=== PATIENT | female | born 1975 ===

== ENCOUNTER → 2023-09-11 10:37 | Outpatient (BNVA) | payer OTHER, SELFPAY | PROVIDERS: PCP Family Medicine; Visit Provider Family Medicine | DX: Z51.81 Encounter for therapeutic drug level monitoring (principal); R53.81 Other malaise; R53.83 Other fatigue; Z13.1 Encounter for screening for diabetes mellitus; Z13.220 Encounter for screening for lipoid disorders | CPT/HCPCS: 80053; 80061; 83036; 84439; 84443; 85025 ==

== ENCOUNTER 2023-09-25 10:36 | Outpatient (CLI) | payer OTHER, SELFPAY ==
--- NOTE | 2023-09-25 10:38 | MM_ITS ---
WS: [id number] Bilateral screening 3D tomosynthesis digital mammogram, 09/25/2023 Clinical Data: Screening mammogram Comparison: None. Findings: The breast parenchymal pattern shows heterogeneous density. No spiculated masses or clustered calcifi cations are seen. There are no secondary signs of carcinoma. Impression: 1. Negative bilateral mammogram with no prior exam for review. 2. Recommend annual screening mammograms. MM/[place] [id number] BIRADS: 1-Negative FOLLOW UP: 1 Year Follow-up The [employer] aircraft shipping checker was used.
== END 2023-09-25 10:37 | disposition home or self-care (01) ==
LOC: RAD 10:36
PROVIDERS: PCP Family Medicine; Visit Provider Family Medicine
DX: Z12.31 Encounter for screening mammogram for malignant neoplasm of breast (principal)
CPT/HCPCS: 77063; 77067

== ENCOUNTER → 2023-10-09 15:15 | Outpatient (BNVA) | payer OTHER, SELFPAY | PROVIDERS: PCP Family Medicine; Visit Provider Family Medicine | DX: Z01.419 Encounter for gynecological examination (general) (routine) without abnormal findings (principal); Z78.9 Other specified health status | CPT/HCPCS: 87491; 87591; 87624 ==

== ENCOUNTER 2023-10-24 07:17 | Day surgery (SDC) | payer OTHER, SELFPAY ==
[2023-10-24 07:25] VITALS: BP 143/101; PULSE 129; RESP 18; TEMP 36.9; O2SAT 98; BMI 37.0
[2023-10-24] MEDS: sodium chloride 0.9% 1,000 ML 30 ML IV (07:35)
--- NOTE | 2023-10-24 07:44 | P.HP_ITS ---
Providers/Chief Complaint Primary Care Provider: Shadi Hilton MD Chief Complaint: Z12.11, R13.10 History of Present Illness Estrellita Palafox is a 48 year old female Review of Systems General: Reports: 10 or more systems reviewed and unremarkable except in HPI and below Medications/Allergies Home Medications Medication Instructions Recorded Confirmed Last Taken Type No Known Home Medications 09/11/23 10/24/23 Unknown History Allergies Allergy/AdvReac Type Severity Reaction Status Date / Time No Known Allergies Allergy Verified 10/22/23 12:04 PFSH Acute PFSH: Surgical History History of appendectomy History of cholecystectomy Family History Mother Diabetes Heart disease Father Diabetes Heart disease Social History Smoking and tobacco/nicotine status: never used tobacco/nicotine Alcohol intake: current Alcohol intake frequency: few times a week Substance/Drug Use: never Current occupation: Works at [employer] Female Reproductive History: Date of last menstrual period: 10/06/23 Vitals/I&O/Wt Last Vital Signs Temp 98.4 F 10/24/23 07:25 Pulse 129 H 10/24/23 07:25 Resp 18 10/24/23 07:25 BP 143/101 10/24/23 07:25 Pulse Ox 98 10/24/23 07:25 O2 Del Method Room Air 10/24/23 07:25 Weight last 48 hrs Weight 196 lb A&P Assessment and plan (1) Encounter for screening colonoscopy: (2) Dysphagia: Plan EGD with possible balloon dilation Screening colonoscopy Attestations Medical Necessity Statement*: home Coding Level of Care Code Acute Code for Chg Fwd Diagnoses Encounter for screening colonoscopy Z12.11 Dysphagia R13.10
[2023-10-24 07:49] LABS: OR HCG Qualitative Urine Negative (Negative)
--- NOTE | 2023-10-24 07:57 | P.ANESASSM_ITS ---
Pre-Anesthetic Assessment Height/Weight: Height 1.55 m Weight 88.904 kg Temp Pulse Resp BP Pulse Ox O2 Del Method 98.4 F 129 H 18 143/101 98 Room Air 10/24/23 07:25 10/24/23 07:25 10/24/23 07:25 10/24/23 07:25 10/24/23 07:25 10/24/23 07:25 Operation Date: 10/24/23 08:00 Proposed Procedures p [id number] egd w/balloon dialation, [id number] colon G0121 screen colon A risk Z12.11,R13.10(Not Applicable) - Chris Lovell DO s Colonoscopy(Not Applicable) - Chris Lovell DO Familial anesthetic complications: None Was Beta Alex taken within 24 hours: N/A Was Clonidine taken within 24 hours: N/A Last intake: Intake Last Liquid Date 10/23/23 Last Liquid Time 23:30 Last Solid Date 10/22/23 Last Solid Time 16:00 Social No alcohol and No tobacco Exam alert, oriented x 3, clear to auscultation bilaterally and regular rate & rhythm Airway Mallampati: Class III Dentition: partials Metabolic Morbid Obesity Anesthetic Plan ASA status: 2 Anesthesia: MAC Risk of > 500 ml blood loss (7ml/kg in children): No Medications/Allergies Home Medications Medication Instructions Recorded Confirmed Last Taken Type No Known Home Medications 09/11/23 10/24/23 Unknown History Allergies Allergy/AdvReac Type Severity Reaction Status Date / Time No Known Allergies Allergy Verified 10/22/23 12:04 Current Medications Generic Name Dose Route Start Last Admin Trade Name Freq PRN Reason Stop Dose Admin Sodium Chloride 1,000 mls @ 30 mls/hr 10/24/23 07:30 10/24/23 07:35 Sodium Chloride 0.9% IV 10/25/23 07:29 30 mls/hr .Q24H JAYSHREE Administration PFSH Anesthesia Surgical History History of appendectomy History of cholecystectomy Family History Mother Diabetes Heart disease Father Diabetes Heart disease Social History Smoking and tobacco/nicotine status: never used tobacco/nicotine Alcohol intake: current Alcohol intake frequency: few times a week Substance/Drug Use: never Current occupation: Works at [employer] Female Reproductive History Date of last menstrual period: 10/06/23 Data Anesthesia Cardiac Studies: No Data to Display
[2023-10-24 08:48] VITALS: BP 151/103; PULSE 86; RESP 20; TEMP 36.5; O2SAT 98
[2023-10-24 08:53] VITALS: BP 129/97; PULSE 100; RESP 20; O2SAT 92
[2023-10-24 09:03] VITALS: BP 132/79; PULSE 97; RESP 20; O2SAT 94
--- NOTE | 2023-10-24 09:35 | ANE.PACU2 ---
Inpatient post-anesthesia follow up: Airway intact: Yes Vital signs: Temperature 97.7 F Pulse Rate 97 Respiratory Rate 20 Blood Pressure 132/79 Pulse Oximetry 94 Oxygen Delivery Me thod Room Air Oxygen Flow Rate 8 Fraction of Inspir ed Oxygen Hydration adequate: Yes Nausea and vomiting: No Pain level: 1 Mental status: Baseline
== END 2023-10-24 09:35 | disposition home or self-care (01) ==
PROVIDERS: Anesthesiology; PCP Family Medicine; Visit Provider Surgery
PROC: 0DJD8ZZ Inspection of Lower Intestinal Tract, Via Natural or Artificial Opening Endoscopic (ICD-10-PCS; CPT 45378; 2023-10-24 08:00)
DX: Z12.11 Encounter for screening for malignant neoplasm of colon (principal); R13.10 Dysphagia, unspecified; D12.3 Benign neoplasm of transverse colon; K29.50 Unspecified chronic gastritis without bleeding; K22.2 Esophageal obstruction; E66.01 Morbid (severe) obesity due to excess calories; Z68.37 Body mass index [BMI] 37.0-37.9, adult
CPT/HCPCS: 43239; 43249; 45385; 81025; 84703; 88305; J2704; J3535; J7030